=== PATIENT | female | born 1955 | race African-American/Black ===

== ENCOUNTER 2018-11-08 21:35 | Emergency (ER) | payer MEDICARE, MEDICAID ==
[~2018-11-08] VITALS: Ht 154.9 cm; Wt 64.4 kg
[2018-11-08 21:36] VITALS: BP 190/75
[2018-11-08] MEDS ORDERED: ALBUTEROL SULF 2.5 MG/0.5ML(0.5%) NEB SOLN NEB ONE (22:00)
[2018-11-08] MEDS ORDERED: IPRATROPIUM BROM 0.5 MG/2.5ML INH SOL NEB ONE (22:00)
== END 2018-11-08 22:03 | disposition left against medical advice (07) ==
LOC: ER 21:35
DX: R06.02 Shortness of breath (principal); Z53.21 Procedure and treatment not carried out due to patient leaving prior to being seen by health care provider
CPT/HCPCS: 94640; J7611; J7644